=== PATIENT | male | born 1990 | race Hispanic/Latino ===

== ENCOUNTER 2023-07-21 03:59 | Emergency (ER) | payer OTHER, SELFPAY ==
[2023-07-21 04:03] VITALS: BP 141/78
--- NOTE | 2023-07-21 04:33 | ED.GENMED ---
History of Present Illness
<SOFIA Do - Last Filed: 07/21/23 05:38>
General
Chief Complaint: Cold/Flu/URI Symptoms
Source: patient
Exam Limitations: none
Time Seen by Provider: 07/21/23 04:17
Travel History
Have you had any contact with someone who has COVID-19?: No
Do you have any symptoms of coronavirus? Fever > 100 degrees, chills, cough, shortness of breath, sore throat, loss of taste or smell, muscle aches, or headache?: Yes
Symptoms:: see above
History of Present Illness
History of Present Illness:
This is a 33 year old male, with a PMH of testicular cancer in remission x 5 years, who presents to the ED c/o fever x 9 hours. Pt states yesterday morning around 10 am, he began feeling lightheaded with palpitations and confusion. He states he
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 Pt states he took ibuprofen
which helped to lower his temperature and he fell asleep for a few hours but woke up again with shaking chills and a temperature of 105 degrees. He notes that he couldn't stand because he was shaking so much. He denies any SOB, abdominal pain, n/v,
diarrhea, constipation, penile discharge, leg swelling, or any sick contacts.
Pt states he was treated for gonorrhea 1 week ago with IM ceftriaxone. He takes Descovy for HIV prophylaxis and is tested for STIs every 3 months. Pt also states is 5 years s/p chemo and retroperitoneal dissection for testicular cancer. He last saw
his oncologist in March and everything was normal. He drinks alcohol socially and denies any drug or tobacco use.
Past History
<SOFIA Do - Last Filed: 07/21/23 05:38>
Past History
ED Past Medical History: Cancer (testicular) and Psychiatric (anxiety and depression)
ED Past Surgical History: Urological (orchiectomy, retroperitoneal dissection)
Patient has exhibited threatening behavior?: No
Social History
Tobacco: Non-smoker
Alcohol: Occasional
Drug: None
Review of Systems
<Marinanora Michael [facility] - Last Filed: 07/21/23 05:38>
Review of Systems
All Other Systems: ROS reviewed and negative except as documented in HPI and ROS
Constitutional: Reports fever and chills
EENT: Reports sore throat; Denies runny nose
Respiratory: Reports cough; Denies trouble breathing
Cardiac: Reports palpitations; Denies syncope
ABD/GI: Reports no symptoms; Denies abdominal pain, nausea, vomiting, diarrhea or constipated
: Reports no symptoms; Denies discharge
Musculoskeletal: Reports muscle pain; Denies edema
Skin: Reports no symptoms
Neurological: Reports headache; Denies dizzy
Psychiatric: Reports no symptoms
Phy Exam
<Jovanni Rodriguez [facility] - Last Filed: 07/21/23 05:38>
General Physical Exam
General Presentation: no apparent distress
General age: appears stated age
General Skin: warm and dry
General Habitus: normal
General Mental: alert
General Hydration: appears well hydrated
ENT Exam
ENT Exam: pharynx normal, normocephalic and swallowing well
Additional ENT: no pharyngeal or tonsillar exudates
Cardiovascular Exam
Cardiovascular Exam: no edema, no murmur, normal peripheral pulses and tachycardia
Heart Sounds: normal
Pulmonary Exam
Pulmonary Exam: lungs clear, no respiratory distress, no rales, no crackles, no rhonchi, no stridor and no wheezing
Oxygen Status: room air
Cough: productive cough
Gastrointestinal Exam
Gastrointestinal Exam: normal bowel sounds, non tender, soft and non distended
Palpation: generalized: No tenderness
Auscultation of Abdomen: normal
Neurological Exam
Neurological Exam: alert and oriented x3
Musculoskeletal Exam
Musculoskeletal Exam: full ROM and no edema
Skin Exam
Skin Exam: normal color and warm/dry
Psychiatric Exam
Psychiatric Exam: normal mood/affect
Course
<SOFIA Do - Last Filed: 07/21/23 05:38>
Orders/Labs/Results
Orders:
Orders
07/21/23 04:11
COVID-19 Antigen Urgent
Source: Nasal Swab
Influenza A+B Rapid Molecular Urgent
RAGHU Source: Nasal Swab
Specimen Description:
07/21/23 04:43
Acetaminophen [Tylenol] 650 mg .ROUTE .STK-MED ONE
07/21/23 04:44
Acetaminophen [Tylenol] 650 mg PO NOW STA
07/21/23 04:52
Oseltamivir Phosphate [Tamiflu] 75 mg PO NOW STA
Vital Signs
Initial and Last Documented VS:
Initial Vital Signs
Temp Pulse Resp BP Pulse Ox
103.2 F H 119 21 141/78 96
07/21/23 04:03 07/21/23 04:03 07/21/23 04:03 07/21/23 04:03 07/21/23 04:03
Last Documented Vital Signs
Temp Pulse Resp BP Pulse Ox
103.2 F H 119 21 141/78 96
07/21/23 04:03 07/21/23 04:03 07/21/23 04:03 07/21/23 04:03 07/21/23 04:03
<Neema Liang MD - Last Filed: 07/21/23 05:09>
Orders/Labs/Results
Orders:
Orders
07/21/23 04:11
COVID-19 Antigen Urgent
Source: Nasal Swab
Influenza A+B Rapid Molecular Urgent
RAGHU Source: Nasal Swab
Specimen Description:
07/21/23 04:43
Acetaminophen [Tylenol] 650 mg .ROUTE .STK-MED ONE
07/21/23 04:44
Acetaminophen [Tylenol] 650 mg PO NOW STA
07/21/23 04:52
Oseltamivir Phosphate [Tamiflu] 75 mg PO NOW STA
Vital Signs
Initial and Last Documented VS:
Initial Vital Signs
Temp Pulse Resp BP Pulse Ox
103.2 F H 119 21 141/78 96
07/21/23 04:03 07/21/23 04:03 07/21/23 04:03 07/21/23 04:03 07/21/23 04:03
Last Documented Vital Signs
Temp Pulse Resp BP Pulse Ox
103.2 F H 119 21 141/78 96
07/21/23 04:03 07/21/23 04:03 07/21/23 04:03 07/21/23 04:03 07/21/23 04:03
<SOFIA Do - Last Filed: 07/21/23 05:38>
*Critical Care Note
Total Time (30-74mins, 75-104mins- exclusive of procedures): Not Applicable
ED Attending Note
<SOFIA Do - Last Filed: 07/21/23 05:38>
-
Portions of this chart may have been created with voice recognition software.� Occasional wrong word or��sound alike� substitutions may have occurred due to the inherent limitations of voice recognition software.
<Neeam Liang MD - Last Filed: 07/21/23 05:09>
ED Attending Note
Patient seen and examined by attending physician: Yes
I performed the substantive portion of visit, reviewed & personally made and approve the management plan that is documented in note by myself or SUSANNE.: Yes
ED Attending Note:
This patient is a 33-year-old male presents emergency department with complaints of feeling ill since yesterday morning. He first noticed that he felt lightheaded, followed by fever that is been progressive Tmax of 105 at approximately 1 AM today
which prompted his visit here. He describes fever, chills, body aches, mild sore throat, and occasional cough. He denies photophobia, neck stiffness, nausea, vomiting, abdominal pain, dyspnea, back pain, urinary symptoms, or other complaints. Of
note, patient was diagnosed with gonorrhea last week through testing and was asymptomatic at that time. He did receive a dose of Rocephin. He denies genital discharge, he denies rash. On exam,
GENERAL: Alert , in no apparent distress
EYE: pupils equal and reactive, no photophobia
NECK: Supple, no significant adenopathy.
ENT: o/p clr, mm slightly dry, uvula midline, voice clear
CARDIAC: Regular rate and rhythm .
LUNGS: Clear breath sounds bilaterally, no acute respiratory distress, no wheezes/rales/rhonchi
ABDOMEN: Soft, without focal tenderness, no r/g, no cvat
NEUROLOGICAL: Alert and oriented, no focal neuro deficits
SKIN: Warm and dry, skin intact.
MUSCULOSKELETAL: No edema, well perfused.
PSYCH: Normal and appropriate interaction.
Patient presents to the Emergency Department with fever
Number and Complexity of Problems Addressed at the Encounter
� Chronic conditions affecting care:
� Acute Exacerbation and/or Progression of Chronic Illness:
� Differential Diagnosis includes: But not limited to influenza, COVID, RSV, viral illness, etc.
Amount and/or Complexity of Data to be Reviewed and Analyzed
� I performed an independent evaluation of and my interpretation is:
EKG:
CT:
Xrays:
Laboratory Studies: Influenza positive COVID-negative
Other:
� Review of other/old records reveals:
� Clinical information was obtained by an independent historian:
� Prescriptions/Medications Considered but not given:
� Further testing considered but not performed:
Risk of Complications and/or Morbidity or Mortality of Patient Management
� Social determinants of health affecting care:
� Discussion with other providers (PCP, Hospitalists, Consultants, etc):
� Escalation of care including admission/observation vs risk of discharge considered: Overall patient nontoxic. Discussed with patient risks and benefits of Tamiflu and he elects to take this medication, prescription written.
Discussed with patient importance of follow-up and reasons to return to the ER. He does not exhibit signs or symptoms to suggest overwhelming illness, sepsis, meningitis/encephalitis, etc. I suspect his elevated heart rate is related to his
elevated temperature noted here for which she was given antipyretic medication. His respiratory rate is normal upon my examination.
Discharge Plan
Departure
Patient Disposition: Home (Routine Discharge)
Date of Disposition: 07/21/23
Time of Disposition: 04:53
Patient with high blood pressure during this ER visit?: Yes
Condition: Good
Discharge Problem:
Influenza
Instructions: Flu, Adult (DC), BLOOD PRESSURE
Prescriptions:
New
oseltamivir [Tamiflu] 75 mg capsule
75 mg PO BID Qty: 10 0RF
Referrals:
Anaid Roberts MD [Family Provider] - Follow up in 2-3 days
Activity Restrictions/Additional Instructions:
IF YOU DEVELOP CHEST PAIN, TROUBLE BREATHING, VOMITING, ABDOMINAL PAIN, GET WORSE, DO NOT GET BETTER OR OTHER WORRISOME SIGNS, GO TO THE ER IMMEDIATELY!
Interventions
Interventions:
*Risk Screen - Suicide Last Done: 07/21/23 04:03
*General Assessment Last Done: 07/21/23 04:03
*Neglect/Abuse Screening Last Done: 07/21/23 04:03
ED- Fall Risk Assessment Last Done: 07/21/23 04:03
*ED COVID-19 Vaccine History Last Done: 07/21/23 04:03
ED- Pulmonary Assessment Last Done: 07/21/23 04:36
Discharge Date and Time
Discharge Date/Time: 07/21/23 05:32
[2023-07-21 04:35] VITALS: BMI 25.1
[2023-07-21 04:39] LABS: COVID-19 Antigen Negative (Negative)
[2023-07-21] MEDS: TYLENOL 650 MG PO (04:44)
[2023-07-21] MEDS: TAMIFLU 75 MG PO (05:06)
== END 2023-07-21 05:32 | disposition home or self-care (01) ==
LOC: EMR 03:59
PROVIDERS: EMERGENCY PHYSICIAN Emergency Medicine; FAMILY PHYSICIAN Emergency Medicine
DX: J11.1 Influenza due to unidentified influenza virus with other respiratory manifestations (principal); R51.9 Headache, unspecified; R00.2 Palpitations; R42 Dizziness and giddiness; R41.0 Disorientation, unspecified; R25.1 Tremor, unspecified; Z11.52 Encounter for screening for COVID-19; R03.0 Elevated blood-pressure reading, without diagnosis of hypertension; A54.9 Gonococcal infection, unspecified; Z85.47 Personal history of malignant neoplasm of testis; Z92.21 Personal history of antineoplastic chemotherapy; Z90.79 Acquired absence of other genital organ(s)
CPT/HCPCS: 99283; 87502; 87811

== ENCOUNTER → 2024-01-26 12:57 | Outpatient (REF) | payer OTHER, SELFPAY | LOC: RAD 12:57 | PROVIDERS: ATTENDING PHYSICIAN Internal Medicine Medical Oncology; FAMILY PHYSICIAN Emergency Medicine | DX: C62.90 Malignant neoplasm of unspecified testis, unspecified whether descended or undescended (principal) | CPT/HCPCS: 71260; 74177; Q9967 ==

== ENCOUNTER 2024-02-20 03:58 | Emergency (ER) | payer OTHER, SELFPAY ==
[2024-02-20 04:01] VITALS: BP 127/88
--- NOTE | 2024-02-20 04:17 | ED.GENMED ---
History of Present Illness
General
Chief Complaint: Crisis Evaluation
Source: patient
Exam Limitations: none
Time Seen by Provider: 02/20/24 04:00
Nursing documentation reviewed up to this point in time: agreed with
History of Present Illness
History of Present Illness:
34-year-old male presents with anxiety panic attack, denies any suicidal thoughts, had been on Wellbutrin and Ativan noncompliant with that now, had been on medical marijuana due to pain from his testicular cancer, not on that now, tells me he
suffered with these symptoms for about 20 years,
Past History
Past History
ED Past Medical History: Cancer (testicular) and Psychiatric (anxiety and depression)
ED Past Surgical History: Urological (orchiectomy, retroperitoneal dissection)
Patient has exhibited threatening behavior?: No
Social History
Tobacco: Non-smoker
Alcohol: Occasional
Drug: None
Living: with family
Employment: Employed
Review of Systems
Review of Systems
All Other Systems: Not applicable
Psychiatric: Reports depression and anxiety; Denies suicidal or hallucinations
Phy Exam
Physical Exam
Physical Exam:
Physical Exam
General: no apparent distress, not acutely ill
Neck: No jaundice
Lungs: no acute respiratory distress. clear bilaterally
Neuro: alert and oriented. no focal neurological deficits
Skin: no rash
Psychiatric: Anxious but cooperative not hallucinating denies suicidal thoughts
Course
Orders/Labs/Results
Orders:
Orders
02/20/24 04:14
Crisis Consult Urgent
Reason for Consult: dpression anxiety
Lorazepam [Ativan] 1 mg PO NOW STA
Vital Signs
Initial and Last Documented VS:
Initial Vital Signs
Temp Pulse Resp BP Pulse Ox
97.9 F 68 18 127/88 100
02/20/24 04:01 02/20/24 04:01 02/20/24 04:01 02/20/24 04:01 02/20/24 04:01
Last Documented Vital Signs
Temp Pulse Resp BP Pulse Ox
97.9 F 68 18 127/88 100
02/20/24 04:01 02/20/24 04:01 02/20/24 04:01 02/20/24 04:01 02/20/24 04:01
MDM/Problems Addressed
Differential Diagnosis Includes:
Anxiety, panic attack, depression, does not appear intoxicated
MDM/Problems Addressed:
Anxiety
Chronic conditions affecting care: Psychiatric illness
Acute Exacerbation and/or Progression of Chronic Illness: Psychiatric illness
*Pulse Oximetry
Patient hypoxic: no
*Critical Care Note
Total Time (30-74mins, 75-104mins- exclusive of procedures): Not Applicable
Update Note
Update Note:
Vital signs stable I do not see anything that would preclude him for psychiatric evaluation
ED Attending Note
-
Portions of this chart may have been created with voice recognition software.� Occasional wrong word or��sound alike� substitutions may have occurred due to the inherent limitations of voice recognition software.
Discharge Plan
Departure
Prescriptions:
No Action
oseltamivir [Tamiflu] 75 mg capsule
75 mg PO BID Qty: 10 0RF
Interventions
Interventions:
*General Assessment Last Done: 02/20/24 04:07
*Neglect/Abuse Screening Last Done: 02/20/24 04:07
*ED COVID-19 Vaccine History Last Done: 02/20/24 04:09
Discharge Date and Time
Print Language: GREEK
[2024-02-20 05:09] LABS: % Basophils 0.3 % (0-2); % Eosinophils 0.3 % (0-6); % Immature Granulocytes 0.5 % (0-0.5); % Lymphocytes 20.5 % (20.5-51.1); % Monocytes 7.8 % (1.7-9.3); % Neutrophils 70.6 % (42.2-75.2); Absolute Lymphocytes 1.2 10^3/uL (1.2-3.4); Absolute Monocytes 0.5 10^3/uL (0.1-0.6); Absolute Neutrophils 4.1 10^3/uL (1.4-6.5); Hematocrit 34.5 % (39.0-52.0); Hemoglobin 11.8 g/dL (13.0-18.0); Mean Corp Hgb Conc. 34.2 g/dL (33.0-37.0); Mean Corpuscular Volume 90.6 fL (80.0-94.0); Mean Platelet Volume 9.2 fL (7.4-10.4); Nucleated Red Blood Cells % 0 % (-); Platelet Count 237 10^3/uL (130-400); Red Blood Cell Count 3.81 10^6/uL (4.70-6.10); Red Cell Dist. Width 12.5 % (11.5-14.5); White Blood Cell Count 5.8 10^3/uL (4.8-10.8)
[2024-02-20 05:24] LABS: Acetaminophen < 10 ug/ml (10-30); Blood Urea Nitrogen 11 mg/dl (9-20); Calcium 9.9 mg/dl (8.4-10.2); Carbon Dioxide 23 mmol/L (22-30); Chloride 104 mmol/L (98-107); Glucose 101 mg/dl (70-99); Potassium 4.1 mmol/L (3.5-5.1); Salicylate < 1.0 mg/dl (2.0-20.0); Sodium 143 mmol/L (135-145); eGFR > 60.00
[2024-02-20] MEDS: ATIVAN 1 MG PO (05:26)
[2024-02-20 05:27] LABS: Alcohol None Detected
[2024-02-20 05:34] LABS: Amphetamines Negative (Negative); Barbiturates Negative (Negative); Benzodiazepines Negative (Negative); Buprenorphine Negative (Negative); Cocaine Negative (Negative); Marijuana Negative (Negative); Methadone Negative (Negative); Methamphetamines Negative (Negative); Opiates Negative (Negative); Phencyclidine Negative (Negative); Tricyclic Antidepressants Negative (Negative)
[2024-02-20 06:53] VITALS: BP 120/81
[2024-02-20 06:57] VITALS: BP 136/81; BMI 26.2
--- NOTE | 2024-02-20 07:00 | EDRN ---
the pt was received from previous shift coordinator RN, the pt is resting in stretcher in the lowest position, side rails up x2, call dowell within reach, HOB elevated, no s/s of distress, the pt is calm, pleasant, and cooperative with staff, the pt allowed
this RN to obtain vital signs, one to one observation maintained, the pt denies needing anything at this time, will continue to monitor the pt closely
--- NOTE | 2024-02-20 09:12 | EDRN ---
breakfast was ordered for the pt, the pt is being calm, cooperative, and pleasant with ED staff, no s/s of distress, the pt denies needing anything at this time, the pt is resting in stretcher in the lowest position, side rails up x1, HOB elevated,
one to one observation maintained, will continue to monitor the pt closely
--- NOTE | 2024-02-20 10:27 | EDRN ---
the pts breakfast tray came up, the pt is sitting on the side of the stretcher eating breakfast, no complaints offered at this time, will continue to monitor the pt closely
--- NOTE | 2024-02-20 13:01 | EDRN ---
verbal report given to Acute Care Staff, the pt is aware that he is leaving to go to [facility]
--- NOTE | 2024-02-20 13:02 | EDRN ---
this RN called [facility] at [phone] to give verbal report to the receiving nurse
== END 2024-02-20 13:05 ==
LOC: EMR 03:58
PROVIDERS: EMERGENCY PHYSICIAN Emergency Medicine
DX: F41.9 Anxiety disorder, unspecified (principal); Z91.148 Patient's other noncompliance with medication regimen for other reason; Z85.47 Personal history of malignant neoplasm of testis; Z90.79 Acquired absence of other genital organ(s)
CPT/HCPCS: 99285; 80048; 80143; 80179; 80306; 82077; 85025

== ENCOUNTER → 2024-05-23 09:49 | Emergency (ER) | payer OTHER, SELFPAY ==
[2024-05-23 09:55] VITALS: BP 127/88
--- NOTE | 2024-05-23 11:48 | ED.GENMED ---
History of Present Illness
General
Chief Complaint: Dizziness
Time Seen by Provider: 05/23/24 11:10
History of Present Illness
History of Present Illness:
34-year-old male Alex for evaluation of intermittent dizziness for the past 2 weeks. Has been taking Trileptal for 2 months due to psychiatric issues, was recently weaned off due to persistent dizziness. The dizziness has not resolved despite
discontinuing Trileptal 1 week ago. He reports positional worsening of his dizziness. Was given Zofran and meclizine by his primary care physician with minimal improvement. Scheduled for an outpatient MRI next week. History of testicular cancer
in remission, stage III based on patient's reporting of the disease.
Past History
Past History
ED Past Medical History: Cancer (testicular) and Psychiatric (anxiety and depression)
ED Past Surgical History: Urological (orchiectomy, retroperitoneal dissection)
Patient has exhibited threatening behavior?: No
Social History
Tobacco: Non-smoker
Alcohol: Occasional
Drug: None
Living: with family
Employment: Employed
Review of Systems
Review of Systems
Allergies reviewed?: Yes
All Other Systems: ROS reviewed and negative except as documented in HPI and ROS
Phy Exam
Physical Exam
Physical Exam:
GEN: Well appearing, NAD, WDWN
HEENT: Oral mucosa moist, no scleral icterus, no nasal congestion
Cardiac: Regular rate
Lung: No respiratory distress, no tachypnea
MSK: No gross deformity or injuries
Skin: Good color, no pallor or jaundice, no rashes
Neuro: AO x3; CN II-XII grossly intact. BUE strength 5/5 in all martínez, sensation intact and symmetric. BLE strength 5/5 in all martínez, sensation intact and symmetric
Psych: Calm, cooperative
Course
Orders/Labs/Results
Orders:
Orders
05/23/24 11:48
CT Head W/o Iv Contrast Urgent
Comment:
Reason For Exam: dizziness, hx of testicular CA
05/23/24 11:50
Electrocardiogram (*1) Urgent
Reason for Study: QTc Monitoring
EKG- Treatment ONCE
05/23/24 12:05
Complete Blood Count/With Diff Urgent
Comprehensive Metabolic Panel Urgent
Abnormal Lab Results
05/23/24
12:05
RBC 4.43 L 10^6/uL
(4.70-6.10)
MCV 94.1 H fL
(80.0-94.0)
MCH 33.0 H pg
(27.0-31.0)
RDW 11.4 L %
(11.5-14.5)
Glucose 103 H mg/dl
(70-99)
Total Protein 8.5 H g/dl
(6.3-8.2)
Albumin 5.1 H g/dl
(3.5-5.0)
05/23/24 12:05
05/23/24 12:05
Vital Signs
Initial and Last Documented VS:
Initial Vital Signs
Temp Pulse Resp BP Pulse Ox
97.3 F 71 20 127/88 98
05/23/24 09:55 05/23/24 09:55 05/23/24 09:55 05/23/24 09:55 05/23/24 09:55
Last Documented Vital Signs
Temp Pulse Resp BP Pulse Ox
97.3 F 71 20 127/88 98
05/23/24 09:55 05/23/24 09:55 05/23/24 09:55 05/23/24 09:55 05/23/24 09:55
MDM/Problems Addressed
MDM/Problems Addressed:
Unclear cause of patient's dizziness, he has no nystagmus and otherwise normal neurologic exam. Head CT and labs are reassuring. Recommend continued outpatient follow-up for brain MRI as planned
*Critical Care Note
Total Time (30-74mins, 75-104mins- exclusive of procedures): Not Applicable
ED Attending Note
-
Portions of this chart may have been created with voice recognition software.� Occasional wrong word or��sound alike� substitutions may have occurred due to the inherent limitations of voice recognition software.
Discharge Plan
Departure
Patient Disposition: Home (Routine Discharge)
Date of Disposition: 05/23/24
Time of Disposition: 13:53
Patient with high blood pressure during this ER visit?: No
Discharge Problem:
Dizziness
Instructions: Dizziness, Nonvertigo, (DC)
Prescriptions:
No Action
No Current Medications
0
Referrals:
UNKNOWN - PT DOES,NOT KNOW [Family Provider] -
Activity Restrictions/Additional Instructions:
Obtain the MRI next week as planned
Follow up with your primary care physician if symptoms persist
Interventions
Interventions:
*Risk Screen - Suicide Last Done: 05/23/24 09:55
*General Assessment Last Done: 05/23/24 09:55
*Neglect/Abuse Screening Last Done: 05/23/24 09:55
ED- Fall Risk Assessment Last Done: 05/23/24 14:03
*ED COVID-19 Vaccine History Last Done: 05/23/24 14:05
*Nursing Disposition Last Done: 05/23/24 14:03
ED- Neurological Assessment Last Done: 05/23/24 13:00
ED- Cardiac Assessment Last Done: 05/23/24 14:03
ED Swallowing Screen Last Done: 05/23/24 14:03
Discharge Date and Time
Print Language: [id number]
[2024-05-23 12:17] LABS: % Basophils 0.6 % (0-2); % Eosinophils 0.4 % (0-6); % Immature Granulocytes 0.2 % (0-0.5); % Lymphocytes 34.3 % (20.5-51.1); % Monocytes 7.3 % (1.7-9.3); % Neutrophils 57.2 % (42.2-75.2); Absolute Lymphocytes 1.7 10^3/uL (1.2-3.4); Absolute Monocytes 0.4 10^3/uL (0.1-0.6); Absolute Neutrophils 2.8 10^3/uL (1.4-6.5); Hematocrit 41.7 % (39.0-52.0); Hemoglobin 14.6 g/dL (13.0-18.0); Mean Corpuscular Volume 94.1 fL (80.0-94.0); Mean Platelet Volume 8.9 fL (7.4-10.4); Nucleated Red Blood Cells % 0 % (-); Platelet Count 244 10^3/uL (130-400); Red Blood Cell Count 4.43 10^6/uL (4.70-6.10); Red Cell Dist. Width 11.4 % (11.5-14.5); White Blood Cell Count 4.9 10^3/uL (4.8-10.8)
[2024-05-23 12:28] LABS: ALT (SGPT) 21 U/L (0-50); AST (SGOT) 27 U/L (17-59); Albumin 5.1 g/dl (3.5-5.0); Alkaline Phosphatase 64 U/L (38-126); Blood Urea Nitrogen 16 mg/dl (9-20); Calcium 9.8 mg/dl (8.4-10.2); Carbon Dioxide 28 mmol/L (22-30); Chloride 100 mmol/L (98-107); Glucose 103 mg/dl (70-99); Potassium 4.2 mmol/L (3.5-5.1); Sodium 138 mmol/L (135-145); Total Bilirubin 0.3 mg/dl (0.2-1.3); Total Protein 8.5 g/dl (6.3-8.2); eGFR > 60.00
== END | disposition home or self-care (01) ==
LOC: EMR 09:49
PROVIDERS: Physician Assistant; EMERGENCY PHYSICIAN Student in an Organized Health Care Education/Training Program
DX: R42 Dizziness and giddiness (principal); F41.9 Anxiety disorder, unspecified; F32.A Depression, unspecified; Z85.47 Personal history of malignant neoplasm of testis
CPT/HCPCS: 99284; 70450; 80053; 85025; 93005